=== PATIENT | female | born 1955 | race Native Hawaiian/Other Pacific Islander ===

== ENCOUNTER 2022-12-31 12:48 | Outpatient (CLI) | payer MEDICAID ==
[2022-12-31 17:35] LABS: BASOPHILS # (AUTO) 0.1 10^3/uL (0.0-0.1); BASOPHILS % (AUTO) 0.6 %; EOSINOPHILS % (AUTO) 0.1 %; HCT - HEMATOCRIT 28.4 % (37.0-47.0); LYMPHOCYTES # (AUTO) 0.9 10^3/uL (1.5-3.5); MEAN CORPUSCULAR HEMOGLOBIN 30.6 pg (27.0-31.0); MEAN CORPUSCULAR HGB CONC 31.7 g/dL (32.0-36.0); MEAN CORPUSCULAR VOLUME 96.6 fL (81.0-99.0); MEAN PLATELET VOLUME 8.3 fL (7.9-10.8); MONOCYTES # (AUTO) 0.7 10^3/uL (0.0-1.0); MONOCYTES % (AUTO) 8.5 %; NEUTROPHILS # (AUTO) 6.5 10^3/uL (1.5-6.6); NEUTROPHILS % (AUTO) 79.3 %; PLT - PLATELET COUNT 469 10^3/uL (130-450); RED BLOOD COUNT 2.94 10^6/uL (4.20-5.40); RED CELL DISTRIBUTION WIDTH 12.9 % (12.0-15.0); WHITE BLOOD COUNT 8.2 x10^3/uL (4.8-10.8)
[2022-12-31 17:49] LABS: ALBUMIN 3.1 g/dL (3.2-5.5); ALBUMIN/GLOBULIN RATIO 0.5 (1.0-2.2); BILIRUBIN,TOTAL 0.5 mg/dL (0.2-1.0); CALCIUM 9.4 mg/dL (8.5-10.3); CREATININE 0.8 mg/dL (0.6-1.3); TOTAL PROTEIN 8.9 g/dL (6.4-8.9)
== END 2022-12-31 12:49 | disposition home or self-care (01) ==
LOC: LAB.N 12:48
PROVIDERS: ATTEND Internal Medicine Hematology & Oncology
DX: C50.911 Malignant neoplasm of unspecified site of right female breast (principal); Z17.0 Estrogen receptor positive status [ER+]
CPT/HCPCS: 36415; 80053; 82378; 85025; 86300

== ENCOUNTER 2023-04-02 14:16 | Outpatient (CLI) | payer MEDICAID ==
[2023-04-02 17:48] LABS: BASOPHILS # (AUTO) 0.1 10^3/uL (0.0-0.1); EOSINOPHILS # (AUTO) 0.3 10^3/uL (0.0-0.7); EOSINOPHILS % (AUTO) 4.3 %; HCT - HEMATOCRIT 33.3 % (37.0-47.0); HGB - HEMOGLOBIN 10.5 g/dL (12.0-16.0); LYMPHOCYTES # (AUTO) 1.5 10^3/uL (1.5-3.5); LYMPHOCYTES % (AUTO) 26.4 %; MEAN CORPUSCULAR HEMOGLOBIN 29.5 pg (27.0-31.0); MEAN CORPUSCULAR HGB CONC 31.5 g/dL (32.0-36.0); MEAN CORPUSCULAR VOLUME 93.5 fL (81.0-99.0); MEAN PLATELET VOLUME 8.7 fL (7.9-10.8); MONOCYTES # (AUTO) 0.5 10^3/uL (0.0-1.0); MONOCYTES % (AUTO) 8.9 %; NEUTROPHILS # (AUTO) 3.4 10^3/uL (1.5-6.6); NEUTROPHILS % (AUTO) 59.2 %; PLT - PLATELET COUNT 221 10^3/uL (130-450); RED BLOOD COUNT 3.56 10^6/uL (4.20-5.40); WHITE BLOOD COUNT 5.8 x10^3/uL (4.8-10.8)
[2023-04-02 18:02] LABS: ALBUMIN 3.5 g/dL (3.2-5.5); ALBUMIN/GLOBULIN RATIO 0.8 (1.0-2.2); BILIRUBIN,TOTAL 0.2 mg/dL (0.2-1.0); CALCIUM 9.1 mg/dL (8.5-10.3); CREATININE 0.7 mg/dL (0.6-1.3); POTASSIUM 3.8 mmol/L (3.5-4.5); TOTAL PROTEIN 8.1 g/dL (6.4-8.9)
[2023-04-02 18:12] LABS: CA 125 5.8 U/mL (0.5-35.0)
== END 2023-04-02 14:17 | disposition home or self-care (01) ==
LOC: LAB.N 14:16
PROVIDERS: ATTEND Internal Medicine Hematology & Oncology
DX: C50.911 Malignant neoplasm of unspecified site of right female breast (principal); C78.00 Secondary malignant neoplasm of unspecified lung
CPT/HCPCS: 36415; 80053; 85025; 86300; 86304

== ENCOUNTER 2023-05-26 10:00 | Outpatient (CLI) | payer MEDICAID ==
[2023-05-26 12:12] LABS: ALBUMIN 3.6 g/dL (3.2-5.5); ALBUMIN/GLOBULIN RATIO 0.8 (1.0-2.2); BILIRUBIN,TOTAL 0.2 mg/dL (0.2-1.0); CALCIUM 9.2 mg/dL (8.5-10.3); CREATININE 0.7 mg/dL (0.6-1.3); TOTAL PROTEIN 8.3 g/dL (6.4-8.9)
[2023-05-26 12:14] LABS: BASOPHILS # (AUTO) 0.1 10^3/uL (0.0-0.1); BASOPHILS % (AUTO) 0.9 %; EOSINOPHILS # (AUTO) 0.1 10^3/uL (0.0-0.7); HGB - HEMOGLOBIN 11.1 g/dL (12.0-16.0); LYMPHOCYTES # (AUTO) 1.5 10^3/uL (1.5-3.5); LYMPHOCYTES % (AUTO) 27.9 %; MEAN CORPUSCULAR HEMOGLOBIN 29.1 pg (27.0-31.0); MEAN CORPUSCULAR HGB CONC 30.8 g/dL (32.0-36.0); MEAN CORPUSCULAR VOLUME 94.2 fL (81.0-99.0); MONOCYTES # (AUTO) 0.4 10^3/uL (0.0-1.0); MONOCYTES % (AUTO) 7.2 %; NEUTROPHILS # (AUTO) 3.3 10^3/uL (1.5-6.6); NEUTROPHILS % (AUTO) 61.8 %; PLT - PLATELET COUNT 212 10^3/uL (130-450); RED BLOOD COUNT 3.82 10^6/uL (4.20-5.40); RED CELL DISTRIBUTION WIDTH 12.7 % (12.0-15.0); WHITE BLOOD COUNT 5.4 x10^3/uL (4.8-10.8)
== END 2023-05-26 10:01 | disposition home or self-care (01) ==
LOC: LAB.N 10:00
PROVIDERS: ATTEND Internal Medicine Hematology & Oncology
DX: C50.911 Malignant neoplasm of unspecified site of right female breast (principal); C78.00 Secondary malignant neoplasm of unspecified lung
CPT/HCPCS: 36415; 80053; 85025; 86300

== ENCOUNTER 2023-06-01 15:49 | Outpatient (CLI) | payer MEDICAID | END 2023-06-01 15:50 | disposition critical access hospital (66) | LOC: EMS 15:49 | DX: R53.1 Weakness (principal); R11.2 Nausea with vomiting, unspecified; R19.7 Diarrhea, unspecified | CPT/HCPCS: A0425; A0429; A0999 ==

== ENCOUNTER 2023-06-01 16:13 | Emergency (ER) | payer MEDICAID ==
[2023-06-01] MEDS: SODIUM CHLORIDE 0.9% 1,000 ML IV STA (16:45)
--- NOTE | 2023-06-01 16:58 | ED Physician Documentation ---
History of Present Illness - Stated complaint Stated Complaint: WEAK N/V/D - Chief complaint Chief Complaint: Abd Pain - History obtained from History obtained from: Patient, Family - Additonal information Additional information: Patient is a 67-year-old female with a history of breast cancer presenting for evaluation of nausea, vomiting and diarrhea starting around 3:00 this afternoon. Patient reports having chicken and rice last night and the feeling a bit weak earlier today. She did run errands including going to the [employer] store but upon returning back home she tried to feeling nauseous and had vomiting. 1 episode of loose stools. She is not receiving chemo or radiation for her breast cancer. No recent antibiotics. No sick contacts. No recent travel. Denies fever, chest pain, shortness of air. Denies abdominal pain. 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 Review of Systems Constitutional: denies: Fever Cardiac: denies: Chest pain / pressure Respiratory: denies: Dyspnea GI: reports: Nausea, Vomiting, Diarrhea. 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 - Present Medications Home Medications: Ambulatory Orders Medication Instructions Recorded Confirmed Ondansetron Odt [Zofran] 4 mg TL Q6H PRN #10 tablet 06/01/23 - Allergies Allergies/Adverse Reactions: Allergies Allergy/AdvReac Type Severity Reaction Status Date / Time No Known Drug Allergies Allergy Verified 06/01/23 16:27 - Social History Does the pt smoke?: No Smoking Status: Never smoker Does the pt drink ETOH?: No Does the pt have substance abuse?: No - POLST Patient has POLST: No PD ED PE NORMAL - General General: Alert and oriented X 3, No acute distress, Well developed/nourished - HEENT HEENT: Atraumatic, Moist mucous membranes, Pharynx benign - Neck Neck: Supple, no meningeal sign - Cardiac Cardiac: RRR, Strong equal pulses - Respiratory Respiratory: No respiratory distress, Clear bilaterally - Abdomen Abdomen: Normal bowel sounds, Soft, Non tender, Non distended - Derm Derm: Warm and dry - Neuro Neuro: Normal speech Results - Vitals Vitals: Vital Signs - 24 hr 06/01/23 19:51 Heart Rate 90 Respiratory 17 Rate Blood Pressure 149/75 H O2 Saturation 98 Oxygen O2 Source Room air - EKG (time done) 1710 EKG releavant findings:: EKG personally interpreted by author of this note. Relevant findings are: Rate 95, normal sinus rhythm, motion artifact at the baseline - Labs Labs: Laboratory Tests 06/01/23 06/01/23 06/01/23 16:57 16:57 17:30 WBC 11.9 H RBC 4.26 Hgb 12.6 Hct 39.1 MCV 91.8 MCH 29.6 MCHC 32.2 RDW 12.8 Plt Count 197 MPV 8.1 Neut # (Auto) 10.8 H Lymph # (Auto) 0.4 L [place] # (Auto) 0.6 Eos # (Auto) 0.0 Baso # (Auto) 0.0 Absolute Nucleated RBC 0.00 Nucleated RBC % 0.0 Sodium 140 Potassium 3.7 Chloride 103 Carbon Dioxide 27 Anion Gap 10.0 BUN 29 H Creatinine 1.3 Estimated GFR (MDRD) 41 L Glucose 131 H Calcium 9.9 Total Bilirubin 0.5 AST 16 ALT 11 Alkaline Phosphatase 102 Troponin I High Sens 4.8 Total Protein 9.1 H Albumin 4.0 Globulin 5.1 H Albumin/Globulin Ratio 0.8 L Lipase 113 H Stl C. diff Tox B Gene NEGATIVE PD Medical Decision Making - ED course Complexity details: reviewed results, re-evaluated patient, d/w patient, d/w family ED course: Patient is a 67-year-old female presenting for evaluation of nausea, vomiting and diarrhea starting this afternoon. Her abdominal exam is benign and vital signs are stable. CBC and chemistries were obtained and reviewed without significant findings. No signs of acute coronary syndrome. Patient denies chest pain or abdominal pain. She is feeling better after IV fluids and Zofran. A stool specimens were sent including C. difficile testing. She is tolerating p.o. here. Abdominal exam remained benign. At this time I do not feel she needs emergent abdominal imaging and discussed continued supportive care with hilda jensen and family. Patient counseled on concerning symptoms to return for. Departure - Departure Disposition: 01 Home, Self Care Clinical Impression: Nausea vomiting and diarrhea Condition: Stable Instructions: ED Diet Vomiting Diarrhea Prescriptions: Ondansetron Odt [Zofran] 4 mg TL Q6H PRN #10 tablet PRN Reason: Nausea / Vomiting Comments: You were evaluated for nausea, vomiting and diarrhea. Your labs are reassuring other than some slight dehydration. We have given you IV fluids and medicine to help with your nausea. I have also sent to the same medication to [facility] in [place]. We have also sent your stool off for testing and we will notify you of any abnormal results. It is important to stay hydrated. Return to the ER with any worsening. Forms: PCP List Discharge Date/Time: 06/01/23 19:51
[2023-06-01 17:02] LABS: BASOPHILS % (AUTO) 0.2 %; EOSINOPHILS % (AUTO) 0.2 %; HCT - HEMATOCRIT 39.1 % (37.0-47.0); HGB - HEMOGLOBIN 12.6 g/dL (12.0-16.0); LYMPHOCYTES # (AUTO) 0.4 10^3/uL (1.5-3.5); LYMPHOCYTES % (AUTO) 3.6 %; MEAN CORPUSCULAR HEMOGLOBIN 29.6 pg (27.0-31.0); MEAN CORPUSCULAR HGB CONC 32.2 g/dL (32.0-36.0); MEAN CORPUSCULAR VOLUME 91.8 fL (81.0-99.0); MEAN PLATELET VOLUME 8.1 fL (7.9-10.8); MONOCYTES # (AUTO) 0.6 10^3/uL (0.0-1.0); MONOCYTES % (AUTO) 4.6 %; NEUTROPHILS # (AUTO) 10.8 10^3/uL (1.5-6.6); NEUTROPHILS % (AUTO) 91.1 %; PLT - PLATELET COUNT 197 10^3/uL (130-450); RED BLOOD COUNT 4.26 10^6/uL (4.20-5.40); RED CELL DISTRIBUTION WIDTH 12.8 % (12.0-15.0); WHITE BLOOD COUNT 11.9 x10^3/uL (4.8-10.8)
[2023-06-01] MEDS: ONDANSETRON 4 MG/2 ML VIAL IVP STA (17:05)
[2023-06-01 17:19] LABS: ALBUMIN/GLOBULIN RATIO 0.8 (1.0-2.2); BILIRUBIN,TOTAL 0.5 mg/dL (0.2-1.0); CALCIUM 9.9 mg/dL (8.5-10.3); CREATININE 1.3 mg/dL (0.6-1.3); POTASSIUM 3.7 mmol/L (3.5-4.5); TOTAL PROTEIN 9.1 g/dL (6.4-8.9)
[2023-06-01 18:31] LABS: TROPONIN I HIGH SENSITIVITY 4.8 ng/L (2.3-14.8)
[2023-06-01 19:58] VITALS: BP 149/75; O2SAT 98
== END 2023-06-01 19:51 | disposition home or self-care (01) ==
LOC: EDUNIT# → ED 16:13
DX: R11.2 Nausea with vomiting, unspecified (principal); R19.7 Diarrhea, unspecified; E11.9 Type 2 diabetes mellitus without complications
CPT/HCPCS: 36415; 80053; 83690; 84484; 85025; 87045; 87046; 87427; 87493; 93005; 96361; 96374; 99283

== ENCOUNTER 2024-06-17 22:48 | Inpatient (IN) ==
[2024-06-17 23:07] LABS: BASOPHILS # (AUTO) 0.1 10^3/uL (0.0-0.1); BASOPHILS % (AUTO) 0.2 %; EOSINOPHILS % (AUTO) 0.2 %; HCT - HEMATOCRIT 25.9 % (37.0-47.0); HGB - HEMOGLOBIN 8.6 g/dL (12.0-16.0); LYMPHOCYTES # (AUTO) 1.2 10^3/uL (1.5-3.5); LYMPHOCYTES % (AUTO) 5.6 %; MEAN CORPUSCULAR HEMOGLOBIN 30.9 pg (27.0-31.0); MEAN CORPUSCULAR HGB CONC 33.2 g/dL (32.0-36.0); MEAN CORPUSCULAR VOLUME 93.2 fL (81.0-99.0); MEAN PLATELET VOLUME 7.8 fL (7.9-10.8); MONOCYTES # (AUTO) 1.4 10^3/uL (0.0-1.0); MONOCYTES % (AUTO) 6.7 %; NEUTROPHILS # (AUTO) 17.6 10^3/uL (1.5-6.6); NEUTROPHILS % (AUTO) 86.7 %; PLT - PLATELET COUNT 313 10^3/uL (130-450); RED BLOOD COUNT 2.78 10^6/uL (4.20-5.40); RED CELL DISTRIBUTION WIDTH 12.5 % (12.0-15.0); WHITE BLOOD COUNT 20.4 x10^3/uL (4.8-10.8)
--- NOTE | 2024-06-17 23:20 | ED Physician Documentation ---
History of Present Illness Stated complaint Stated Complaint: WEAKNESS, COUGH, FEVER Chief complaint Chief Complaint: General Additonal information Additional information: 68yF With past medical history of breast cancer "in remission" presents with weakness, cough, for the past month per herself and her family, worsening over the past couple of days. she dendorsed subjective fever, malaise, soa. denies cp. patient does have hardened appearance of the R breast and states she has not had surgery on it despite breast cancer diangosis. denies hemoptysis, leg swelling, pleurisy. [facility] speech therapist [phone]. Meds/Allgy Home Medications Ambulatory Orders Medication Instructions Recorded Confirmed ondansetron 4 mg disintegrating 4 mg translingual Q6H PRN Nausea / 06/01/23 tablet Vomiting #10 tabs Allergies Allergies Allergy/AdvReac Type Severity Reaction Status Date / Time No Known Drug Allergies Allergy Verified 06/17/24 23:01 PFSH Social History Social History Smoking Status: Never smoker Do you feel safe in your home environment?: Yes Suffered physical, verbal, emotional, or financial abuse?: No POLST Patient has POLST: No Exam Constitutional normal general appearance, no apparent distress and average body habitus HENMT normocephalic and head/scalp atraumatic Eyes PERRL and EOMs intact bilaterally Neck/C-Spine visual inspection normal Chest R breast with peau d'orange appearance concerning for untreated breast cancer Respiratory mild increased wob. increased respiratory rate. diminished breath sound in R lung [place]. Cardiovascular tachycardic rate, regular rhythm Results Vitals Vitals: Vital Signs - 24 hr 06/17/24 22:56 06/17/24 23:52 Temperature 39.9 C H Temperature Source Oral Pulse Rate 100 Respiratory Rate 20 Blood Pressure 160/64 H O2 Saturation 94 Oxygen Delivery Method Nasal Cannula O2 Source Room air Oxygen Flow Rate 2 Pain Intensity 0 Oxygen O2 Source Room air Oxygen Flow Rate 2 EKG (time done) 2309: EKG releavant findings:: EKG personally interpreted by author of this note. Relevant findings are: Rate: Rate (enter#) (96) Rhythm: NSR [place]: Normal Labs Labs: Laboratory Tests 06/17/24 06/17/24 06/17/24 23:02 23:02 23:02 WBC 20.4 H RBC 2.78 L Hgb 8.6 L Hct 25.9 L MCV 93.2 MCH 30.9 MCHC 33.2 RDW 12.5 Plt Count 313 MPV 7.8 L Neut # (Auto) 17.6 H Lymph # (Auto) 1.2 L [place] # (Auto) 1.4 H Eos # (Auto) 0.0 Baso # (Auto) 0.1 Absolute Nucleated RBC 0.00 Band Neuts % (Manual) Not Reportable Abnorm Lymph % (Manual) Not Reportable Nucleated RBC % 0.0 Neutrophils # (Manual) Not Reportable Lymphocytes # (Manual) Not Reportable Monocytes # (Manual) Not Reportable Eosinophils # (Manual) Not Reportable Basophils # (Manual) Not Reportable Differential Comment MANUAL=AUTO DIFF Platelet Estimate NORMAL (130-450,000) Platelet Morphology NORMAL APPEARANCE RBC Morph Micro Appear 1+ ANISOCYTOSIS 1+ HYPOCHROMASIA 1+ MICROCYTOSIS VBG pH VBG pCO2 VBG pO2 VBG HCO3 VBG Total CO2 VBG O2 Saturation VBG Base Excess Sodium 126 L Potassium 4.2 Chloride 91 L Carbon Dioxide 24 Anion Gap 11.0 BUN 18 Creatinine 1.0 Estimated GFR (MDRD) 55 L Glucose 240 H Lactic Acid 1.3 Calcium 8.9 Total Bilirubin 0.9 AST 23 ALT 19 Alkaline Phosphatase 99 Total Protein 8.1 Albumin 2.9 L Globulin 5.2 H Albumin/Globulin Ratio 0.6 L 06/17/24 23:45 WBC RBC Hgb Hct MCV MCH MCHC RDW Plt Count MPV Neut # (Auto) Lymph # (Auto) [place] # (Auto) Eos # (Auto) Baso # (Auto) Absolute Nucleated RBC Band Neuts % (Manual) Abnorm Lymph % (Manual) Nucleated RBC % Neutrophils # (Manual) Lymphocytes # (Manual) Monocytes # (Manual) Eosinophils # (Manual) Basophils # (Manual) Differential Comment Platelet Estimate Platelet Morphology RBC Morph Micro Appear VBG pH 7.549 H VBG pCO2 29.7 L VBG pO2 83.7 H VBG HCO3 26.2 VBG Total CO2 27.1 VBG O2 Saturation 96.0 H VBG Base Excess 3.6 H Sodium Potassium Chloride Carbon Dioxide Anion Gap BUN Creatinine Estimated GFR (MDRD) Glucose Lactic Acid Calcium Total Bilirubin AST ALT Alkaline Phosphatase Total Protein Albumin Globulin Albumin/Globulin Ratio PD Medical Decision Making ED course ED course: 68yF p/w right-sided pneumonia as well as hypoxia and tachypnea on exam. o2 sat 92-93% on RA improving to high 90s on 2L . Patient has white blood cell count of 20, is profoundly anemic with hemoglobin 8.6 (previous 12.6 on 06/01/2023), is hyponatremic with sodium 126 and glucose 240. 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 Plan To admit for supplemental oxygen and IV antibiotics. Note that she appears also to have untreated right breast cancer due to peau d'orange appearance of her right breast and no evidence of lumpectomy or mastectomy in the setting of breast cancer history. Discharge Plan Discharge Patient Disposition: 65 [facility] DC/Xfer Condition: Fair Clinical Impression: Peau d'orange over breast, Breast cancer, Pneumonia, Hyperglycemia, Hypoxia Prescriptions: No Action ondansetron 4 MG tablet,disintegrating 4 mg translingual Q6H PRN (Reason: Nausea / Vomiting) Qty: 10 0RF Print Language: Unknown Stand Alone Forms: PCP List
[2024-06-17 23:22] LABS: ALBUMIN 2.9 g/dL (3.2-5.5); ALBUMIN/GLOBULIN RATIO 0.6 (1.0-2.2); BILIRUBIN,TOTAL 0.9 mg/dL (0.2-1.0); CALCIUM 8.9 mg/dL (8.5-10.3); POTASSIUM 4.2 mmol/L (3.5-4.5); TOTAL PROTEIN 8.1 g/dL (6.4-8.9)
[2024-06-17 23:37] LABS: PLATELET ESTIMATE, MANUAL NORMAL (130-450,000) (NORMAL); PLATELET MORPHOLOGY NORMAL APPEARANCE (NORMAL)
[2024-06-17 23:38] LABS: DIFFERENTIAL COMMENT MANUAL=AUTO DIFF
--- NOTE | 2024-06-17 23:49 | XRAY Report ---
PROCEDURE: XR Chest 1V INDICATIONS: fever TECHNIQUE: One view of the chest was acquired. COMPARISON: None. FINDINGS: Surgical changes and devices: Prior left mastectomy. Lungs and pleura: There is a small right-sided pleural effusion. There is moderate consolidation see n involving the anterior right lung. No pneumothorax is seen. Mediastinum: The aorta is prominent and tortuous. The cardiac contours are within normal limits. Bones and chest wall: No suspicious bony lesions. Age-appropriate degenerative changes are seen. O verlying soft tissues appear unremarkable. IMPRESSION: Right-sided pleural effusion, with consolidation seen involving the anterior right lung. Reviewed by: Jd Christensen MD on 06/17/2024 10:48 PM [facility] [[email or web address]] Approved by: Jd Christensen MD on 06/17/2024 10:48 PM [facility] [[email or web address]] Station ID: [id number]
[2024-06-17 23:51] LABS: VBG PCO2 29.7 mmHg (41-51); VBG PH 7.549 (7.31-7.41)
[2024-06-17 23:52] LABS: VBG BASE EXCESS 3.6 mmol/L (-2 - +2); VBG PO2 83.7 mmHg (25-47); VBG TOTAL CO2 27.1 mmol/L (24-29)
[2024-06-18 00:09] LABS: B. PARAPERTUSSIS- RESP PCR PAN NOT DETECTED; B. PERTUSSIS- RESP PCR PANEL NOT DETECTED; C. PNEUMONIAE- RESP PCR PANEL NOT DETECTED; CORONAVIRUS 229E-RESP PCR NOT DETECTED; CORONAVIRUS HKU1-RESP PCR NOT DETECTED; CORONAVIRUS NL63-RESP PCR NOT DETECTED; CORONAVIRUS OC43-RESP PCR NOT DETECTED; HUMAN METAPNEUMOVIRUS NOT DETECTED; INFLUENZA A- RESP PCR PANEL NOT DETECTED; INFLUENZA B - RESP PCR PANEL NOT DETECTED; M. PNEUMONIAE- RESP PCR PANEL NOT DETECTED; PARAINFLUENZA VIRUS 1 NOT DETECTED; PARAINFLUENZA VIRUS 2 NOT DETECTED; PARAINFLUENZA VIRUS 4 NOT DETECTED; RHINOVIRUS/ENTEROVIRUS NOT DETECTED; RSV- RESP PCR PANEL NOT DETECTED; SARS-CoV-2 -RESP PCR PANEL NOT DETECTED
[2024-06-18] MEDS ORDERED: cefTRIAXone 2 GM VIAL ONE (00:10)
[2024-06-18] MEDS: cefTRIAXone 2 GM in SODIUM CHLORIDE 0.9% MINIBAG 100 ML IV STA (00:15)
[2024-06-18] MEDS: SODIUM CHLORIDE 0.9% 1,500 ML IV ONE (00:15)
[2024-06-18] MEDS ORDERED: ONDANSETRON ODT 4 MG TABLET TL PRN (00:47)
--- NOTE | 2024-06-18 01:08 | HISTORY & PHYSICAL EXAMINATION ---
Chief Complaint Chief Complaint Chief Complaint: Shortness of Breath History of Present Illness Admitted From Admitted From:: ER History Obtained From Records Reviewed: Yes History obtained from: Pt, pt's niece, staff, chart Exam Limitations: Virtual exam, language barrier History of Present Illness HPI Comment/Other: H&P was conducted via video remotely, using [employer]. Patient is in [place]. Physician is in [place]. Pt's niece Lyn is at bedside. Pt speaks [place]. Pt's niece is translating for pt. 68 yo F with h/o Breast CA, DM type 2 presented to the ER with c/o 1 month h/o weakness, Shortness of breath, cough. Pt was admitted to a different hospital 1 year ago for similar symptoms with diagnosis of PNA. Pt was seen 1 month ago at different hospital and given dx of Flu. Pt's symptoms continued to worsen, so she came to the ER today. Pt has a h/o Breast CA, but no h/o surgery for CA, no radiation. Pt does take medication (unknown name for CA). Pt was seeing a Dr. Hunter, an Oncologist in [facility], for her Breast CA, but has been unable to see him in >1 year d/t insurance issues. Pt says that her R breast has an improved appearance than pre-tx. She is willing to see a more local Oncologist. Pt takes PO medications for her DM 2 (unknown names). Her FBS are usually 180 or less. Pt began to have symptoms of SOB 1 month ago, then cough with no sputum, and weakness. No documented Fever. +cold/shivering x 1 day. +nausea/decreased appetite. No abdo pain. In the ER, T39.9C, HR 100, RR 20, WBC 20.4, Hgb 8.6, Na 126, Glc 240 CXR: Right-sided pleural effusion, with consolidation seen involving the anterior right lung. Pt was given IVF, Rocephin/Azithro in the ER. Review of Systems Status of ROS: 10 or more systems reviewed and unremarkable except as noted in history and below PFSH Social History Social History Smoking Status: Never smoker Do you feel safe in your home environment?: Yes Suffered physical, verbal, emotional, or financial abuse?: No POLST Patient has POLST: No Meds/Allgy Home Medications Ambulatory Orders Medication Instructions Recorded Confirmed ondansetron 4 mg disintegrating 4 mg translingual Q6H PRN Nausea / 06/01/23 tablet Vomiting #10 tabs Allergies Allergies Allergy/AdvReac Type Severity Reaction Status Date / Time No Known Drug Allergies Allergy Verified 06/17/24 23:01 Exam Constitutional normal general appearance and no apparent distress HENMT normocephalic Eyes EOMs intact bilaterally and no scleral icterus Chest per ER Provider: R breast with peau d'orange appearance concerning for untreated breast cancer Respiratory Access cart stethoscope not working; per ER Provider:mild increased wob. increased respiratory rate. diminished breath sound in R lung [place]. Cardiovascular Access cart stethoscope not working; per ER Provider: RR, tachy Gastrointestinal per ER Provider: non-distended, NT, Soft Extremities per ER Provider: moves all extrem, no edema Neurology A+Ox3, normal speech, cooperative; per ER Provider: NFD Conclusion/Plan Problem List (1) Pneumonia: Plan R Pneumonia, most likely post-obstructive R Pleural Effusion Fever Cough Shortness of breath Leukocytosis Tachycardia -T39.9C, HR 100, RR 20, WBC 20.4, Resp viral panel neg, BC pending -CXR: Right-sided pleural effusion, with consolidation seen involving the anterior right lung. -Pt was given IVF, Rocephin/Azithro in the ER. -admit to Med Surg -O2 support PRN -change to Unasyn IV -consider thoracentesis -may need transfer to hospital with IR and Oncologist if does not improve Breast CA Anemia -Hgb 8.6 -pt on unknown medication for Breast CA; need med rec -pt has had difficulty with F/u with Oncologist d/t insurance - consult to help coordinate F/U with local Oncologist DM type 2 -Glc 240 -accuchecks, SS Insulin, Hypoglycemic protocol -hold home PO medications -check Hgba1c Hyponatremia -Na 126 -most likely d/t decreased PO intake -continue IVF -check Na q4 hrs, goal for increase in Na <1 meQ/hr VTE Prophylaxis: Lovenox Code Status: D/W pt; she is Full Code ~Priscila Weaver MD Hospitalist Lab Results Lab results reviewed: Yes 06/17/24 23:02 06/17/24 23:02
[2024-06-18] MEDS ORDERED: ONDANSETRON 4 MG/2 ML VIAL IVP PRN (01:32)
[2024-06-18] MEDS: AZITHROMYCIN INJ 500 MG in SODIUM CHLORIDE 0.9% 250 ML IV STA (01:56)
[2024-06-18] MEDS: SODIUM CHLORIDE FLUSH 0.9% 10 ML SYRINGE IVP SCH (01:56)
[2024-06-18] MEDS: SODIUM CHLORIDE 0.9% 1,000 ML IV SCH (02:02)
[2024-06-18] MEDS: AMPICILLIN/SULBACTAM 3 GM in SODIUM CHLORIDE 0.9% MINIBAG 100 ML IV SCH (02:31)
[2024-06-18] MEDS: levoFLOXacin 500 MG/100 ML 500 MG/100 ML BAG IV SCH (03:06)
[2024-06-18 03:07] LABS: BILIRUBIN,URINE NEGATIVE (NEGATIVE); GLUCOSE, URINE (UA) 100 mg/dL (NEGATIVE); KETONES,URINE (UA) NEGATIVE (NEGATIVE); LEUKOCYTE ESTERASE, URINE NEGATIVE (NEGATIVE); NITRITE,URINE NEGATIVE (NEGATIVE); OCCULT BLOOD,URINE MODERATE (NEGATIVE); PROTEIN,URINE 30 mg/dL (NEGATIVE); UROBILINOGEN,URINE 1 (NORMAL) E.U./dL (NORMAL)
[2024-06-18] MEDS: diphenhydrAMINE INJ 50 MG/ML VIAL IVP SCH (03:07)
[2024-06-18 03:17] LABS: CLARITY,URINE CLEAR (CLEAR)
[2024-06-18 03:19] LABS: BACTERIA,URINE Few /HPF (None Seen); RBC,URINE 0-5 /HPF (0-5); SQUAMOUS EPITHELIAL CELL,UR FEW Squamous (<= Few); WBC,URINE 0-3 /HPF (0-5)
[2024-06-18 07:13] LABS: BASOPHILS % (AUTO) 0.3 %; EOSINOPHILS % (AUTO) 0.1 %; HCT - HEMATOCRIT 23.4 % (37.0-47.0); HGB - HEMOGLOBIN 7.7 g/dL (12.0-16.0); LYMPHOCYTES # (AUTO) 1.1 10^3/uL (1.5-3.5); LYMPHOCYTES % (AUTO) 6.7 %; MEAN CORPUSCULAR HEMOGLOBIN 31.3 pg (27.0-31.0); MEAN CORPUSCULAR HGB CONC 32.9 g/dL (32.0-36.0); MEAN CORPUSCULAR VOLUME 95.1 fL (81.0-99.0); MONOCYTES # (AUTO) 1.2 10^3/uL (0.0-1.0); MONOCYTES % (AUTO) 7.5 %; NEUTROPHILS # (AUTO) 13.5 10^3/uL (1.5-6.6); NEUTROPHILS % (AUTO) 84.8 %; PLT - PLATELET COUNT 289 10^3/uL (130-450); RED BLOOD COUNT 2.46 10^6/uL (4.20-5.40); RED CELL DISTRIBUTION WIDTH 12.7 % (12.0-15.0); WHITE BLOOD COUNT 15.9 x10^3/uL (4.8-10.8)
[2024-06-18 07:32] LABS: CREATININE 0.8 mg/dL (0.6-1.3); POTASSIUM 3.9 mmol/L (3.5-4.5)
[2024-06-18 08:36] LABS: ESTIMATED AVERAGE GLUCOSE 223 mg/dL (70-100); HEMOGLOBIN A1c% 9.4 % (4.27-6.07)
[2024-06-18] MEDS: INSULIN LISPRO 300 UNIT/3 ML PEN SUBQ SCH (08:43)
[2024-06-18] MEDS: ENOXAPARIN 40 MG/0.4 ML SYRINGE SUBQ SCH (08:43)
--- NOTE | 2024-06-18 14:24 | PHARMACY PROGRESS NOTE ---
Best Possible Medication History Admit Date and Time: 06/18/24 [id number] Home Medications Medication Instructions Recorded Confirmed Type anastrozole 1 mg tablet 1 mg PO DAILY 06/18/24 06/18/24 History glipizide 2.5 mg tablet, extended 2.5 mg PO BID 06/18/24 06/18/24 History release 24 hr Processed by: Pharmacy (Medication reconciliation completed by clinical pharmacy coordinatorMalcolm) Medications reviewed in ED?: No Medication History completed: Yes Patient Interview: Pt unable to participate Secondary Source(s): Pharmacy records and Insurance records [facility] Statement: As the person ultimately responsible for medication therapy, providers are able to order a medication from an existing home medication list in [facility] via the "Reconcile Routine" prior to Confirmation of that medication by support analyst. Such practice is discouraged except when the physician, in their clinical judgment, deems that a medical need exists for a medication without regard to previous use.
[2024-06-19 06:10] LABS: BASOPHILS % (AUTO) 0.3 %; EOSINOPHILS % (AUTO) 0.2 %; HCT - HEMATOCRIT 24.6 % (37.0-47.0); HGB - HEMOGLOBIN 7.9 g/dL (12.0-16.0); LYMPHOCYTES # (AUTO) 1.1 10^3/uL (1.5-3.5); LYMPHOCYTES % (AUTO) 7.5 %; MEAN CORPUSCULAR HEMOGLOBIN 30.9 pg (27.0-31.0); MEAN CORPUSCULAR HGB CONC 32.1 g/dL (32.0-36.0); MEAN CORPUSCULAR VOLUME 96.1 fL (81.0-99.0); MONOCYTES # (AUTO) 1.5 10^3/uL (0.0-1.0); MONOCYTES % (AUTO) 10.2 %; NEUTROPHILS # (AUTO) 12.1 10^3/uL (1.5-6.6); NEUTROPHILS % (AUTO) 81.1 %; PLT - PLATELET COUNT 301 10^3/uL (130-450); RED BLOOD COUNT 2.56 10^6/uL (4.20-5.40); RED CELL DISTRIBUTION WIDTH 12.7 % (12.0-15.0); WHITE BLOOD COUNT 14.9 x10^3/uL (4.8-10.8)
[2024-06-19 06:43] LABS: DIFFERENTIAL COMMENT MANUAL=AUTO DIFF; PLATELET ESTIMATE, MANUAL NORMAL (130-450,000) (NORMAL); PLATELET MORPHOLOGY NORMAL APPEARANCE (NORMAL); RBC MORPHOLOGY (MULTIPLE) NORMAL APPEARANCE (NORMAL); WBC MORPHOLOGY (MULTIPLE) NORMAL APPEARANCE (NORMAL)
[2024-06-19] MEDS: AZITHROMYCIN 250 MG TABLET PO SCH (08:33)
[2024-06-19] MEDS: polyethylene glycoL 3350 17 GM PACKET PO SCH (08:33)
[2024-06-19] MEDS: cefTRIAXone 1 GM VIAL IVP SCH (08:33)
[2024-06-19 09:40] LABS: INR 1.5 (0.8-1.2); PT - PROTHROMBIN TIME 16.6 secs (9.9-12.6)
--- NOTE | 2024-06-19 12:44 | PROVIDER PROGRESS NOTE ---
Subjective Subjective Subjective: Patient is a 68-year-old female with a history of breast cancer on anastrozole, poor compliance who presents with 1 month of progressive shortness of breath, cough, as well as weakness. She has a history of breast cancer, and sees an oncologist in [place] but has been unable to see him for over a year due to insurance issues. Chest x-ray on admission showed a right sided pleural effusion, with consolidation seen involving the anterior right lung. She was hyponatremic, and had a significant leukocytosis on admission. Currently, she is being treated for community-acquired pneumonia. She is receiving IV fluids for her hyponatremia. For her pleural effusion, we did consult radiology; they are planning a CT scan of the lung, followed by an ultrasound-guided thoracentesis. Social work is working on connecting her with cancer care management here so she can establish care with Dr. Strauss. Patient speaks [place] Irish primarily, but is able to communicate in Yakut. Jluisfrank is at bedside if needed. Current Medications Current Medications Current Medications: Current Medications Generic Name Dose Route Start Last Admin Trade Name Freq PRN Reason Stop Dose Admin Acetaminophen 650 mg 06/18/24 01:32 Acetaminophen 325 Mg Tablet PO Q4HR PRN Pain 1 to 4, or Fever Azithromycin 500 mg 06/19/24 09:00 06/19/24 08:33 Azithromycin 250 Mg Tablet PO 500 mg DAILY MAIKEL Administration Ceftriaxone Sodium 1 gm 06/19/24 09:00 06/19/24 08:33 Ceftriaxone 1 Gm Vial IVP 1 gm DAILY MAIKEL Administration Enoxaparin Sodium 40 mg 06/18/24 09:00 06/19/24 08:49 Enoxaparin 40 Mg/0.4 Ml Syringe SUBQ Not Given DAILY MAIKEL Insulin Human Lispro 1 - 5 unit 06/18/24 08:00 06/19/24 11:55 Insulin Lispro 300 Unit/3 Ml Pen SUBQ 2 unit 0800,1200,1700,2100 MAIKEL Administration Protocol Ondansetron HCl 4 mg 06/18/24 00:47 Ondansetron Odt 4 Mg Tablet TL Q6H PRN Nausea / Vomiting Ondansetron HCl 4 mg 06/18/24 01:32 Ondansetron 4 Mg/2 Ml Vial IVP Q6HR PRN Nausea / Vomiting Polyethylene Glycol 17 gm 06/19/24 09:00 06/19/24 08:33 Polyethylene Glycol 3350 17 Gm Packet PO 17 gm DAILY MAIKEL Administration Sodium Chloride 10 ml 06/18/24 01:32 Sodium Chloride Flush 0.9% 10 Ml Syringe IVP PRN PRN NEEDED PER PROVIDER ORDERS Sodium Chloride 10 ml 06/18/24 01:32 06/19/24 08:34 Sodium Chloride Flush 0.9% 10 Ml Syringe IVP 10 ml 0100,0900,1700 MAIKEL Administration Objective Vital Signs/Intake & Output Reviewed Vital Signs: Yes Vital Signs: Vital Signs x48h Temp Pulse Resp BP BP Pulse Ox 06/19/24 09:03 97.9 F 100 20 139/77 H 92 06/19/24 08:30 99.1 F 87 135/61 H 95 Intake & Output: Intake & Output 06/16/24 06/17/24 06/18/24 06/19/24 23:59 23:59 23:59 23:59 Intake Total 3500 / 3500 240 / 240 Output Total 2100 / 2100 Balance 1400 / 1400 240 / 240 Weight (kg) 54.3 kg 50.5 kg Objective General Appearance: positive No acute distress, Alert and Other (Cachectic in appearance, temporal wasting noted); negative Anxious Eyes Bilateral: positive Normal inspection, PERRL and EOMI ENT: positive ENT inspection nml, Pharynx nml and No signs of dehydration Neck: positive Nml inspection, Thyroid nml and No JVD Respiratory: positive Chest non-tender, No respiratory distress and Other (Diminshed lung sounds in the right lower lobe, some crackles auscultated in the right upper lobe; ROCIO and LLL with normal breath sounds); negative Breath sounds nml Cardiovascular: positive Regular rate & rhythm, No murmur and No gallop; negative Systolic murmur, Diastolic murmur or Friction rub Abdomen: positive Non-tender; negative Guarding, Rebound, Hepatomegaly, Splenomegaly or Mass Back: positive Nml inspection; negative CVA tenderness (R) or CVA tenderness (L) Skin: positive Color nml, No rash and Warm; negative Dry or Cyanosis Extremities: positive Non-tender, Full ROM and Nml appearance Neurologic/Psychiatric: positive Oriented x3 and Mood/affect nml Lab Results 06/19/24 05:52 06/19/24 12:28 Other Labs: Lab Results x24hrs 0206/19/24 06/19/24 Range/Units 11:39 09:28 07:49 WBC (4.8-10.8) x10^3/uL RBC (4.20-5.40) 10^6/uL Hgb (12.0-16.0) g/dL Hct (37.0-47.0) % MCV (81.0-99.0) fL MCH (27.0-31.0) pg MCHC (32.0-36.0) g/dL RDW (12.0-15.0) % Plt Count (130-450) 10^3/uL MPV (7.9-10.8) fL Neut # (Auto) (1.5-6.6) 10^3/uL Lymph # (Auto) (1.5-3.5) 10^3/uL Barbour # (Auto) (0.0-1.0) 10^3/uL Eos # (Auto) (0.0-0.7) 10^3/uL Baso # (Auto) (0.0-0.1) 10^3/uL Absolute Nucleated RBC x10^3/uL Band Neuts % (Manual) Abnorm Lymph % (Manual) Nucleated RBC % /100WBC Neutrophils # (Manual) Lymphocytes # (Manual) Monocytes # (Manual) Eosinophils # (Manual) Basophils # (Manual) Differential Comment WBC Morphology (NORMAL) Platelet Estimate (NORMAL) Platelet Morphology (NORMAL) RBC Morph Micro Appear (NORMAL) PT 16.6 H (9.9-12.6) secs INR 1.5 H (0.8-1.2) Sodium (135-145) mmol/L POC Whole Bld Glucose 198 138 (70-100) mg/dL 06/19/24 06/18/24 06/18/24 Range/Units 05:52 21:09 20:58 WBC 14.9 H (4.8-10.8) x10^3/uL RBC 2.56 L (4.20-5.40) 10^6/uL Hgb 7.9 L (12.0-16.0) g/dL Hct 24.6 L (37.0-47.0) % MCV 96.1 (81.0-99.0) fL MCH 30.9 (27.0-31.0) pg MCHC 32.1 (32.0-36.0) g/dL RDW 12.7 (12.0-15.0) % Plt Count 301 (130-450) 10^3/uL MPV 8.0 (7.9-10.8) fL Neut # (Auto) 12.1 H (1.5-6.6) 10^3/uL Lymph # (Auto) 1.1 L (1.5-3.5) 10^3/uL Barbour # (Auto) 1.5 H (0.0-1.0) 10^3/uL Eos # (Auto) 0.0 (0.0-0.7) 10^3/uL Baso # (Auto) 0.0 (0.0-0.1) 10^3/uL Absolute Nucleated RBC 0.00 x10^3/uL Band Neuts % (Manual) Not Reportable Abnorm Lymph % (Manual) Not Reportable Nucleated RBC % 0.0 /100WBC Neutrophils # (Manual) Not Reportable Lymphocytes # (Manual) Not Reportable Monocytes # (Manual) Not Reportable Eosinophils # (Manual) Not Reportable Basophils # (Manual) Not Reportable Differential Comment MANUAL=AUTO DIFF WBC Morphology NORMAL APPEARANCE (NORMAL) Platelet Estimate NORMAL (130-450,000) (NORMAL) Platelet Morphology NORMAL APPEARANCE (NORMAL) RBC Morph Micro Appear NORMAL APPEARANCE (NORMAL) PT (9.9-12.6) secs INR (0.8-1.2) Sodium 128 L (135-145) mmol/L POC Whole Bld Glucose 231 (70-100) mg/dL 06/18/24 06/18/24 06/18/24 Range/Units 16:56 16:50 13:09 WBC (4.8-10.8) x10^3/uL RBC (4.20-5.40) 10^6/uL Hgb (12.0-16.0) g/dL Hct (37.0-47.0) % MCV (81.0-99.0) fL MCH (27.0-31.0) pg MCHC (32.0-36.0) g/dL RDW (12.0-15.0) % Plt Count (130-450) 10^3/uL MPV (7.9-10.8) fL Neut # (Auto) (1.5-6.6) 10^3/uL Lymph # (Auto) (1.5-3.5) 10^3/uL Barbour # (Auto) (0.0-1.0) 10^3/uL Eos # (Auto) (0.0-0.7) 10^3/uL Baso # (Auto) (0.0-0.1) 10^3/uL Absolute Nucleated RBC x10^3/uL Band Neuts % (Manual) Abnorm Lymph % (Manual) Nucleated RBC % /100WBC Neutrophils # (Manual) Lymphocytes # (Manual) Monocytes # (Manual) Eosinophils # (Manual) Basophils # (Manual) Differential Comment WBC Morphology (NORMAL) Platelet Estimate (NORMAL) Platelet Morphology (NORMAL) RBC Morph Micro Appear (NORMAL) PT (9.9-12.6) secs INR (0.8-1.2) Sodium 130 L 130 L (135-145) mmol/L POC Whole Bld Glucose 145 (70-100) mg/dL Diagnostic Imaging Diagnostic Imaging Results: positive Final report reviewed Assessment/Plan Problem List (1) Pneumonia: Impression: Patient with right lower lobe infiltrate. Does have a history of right breast cancer, unknown status at this time. There is concern for postobstructive pneumonia. Continue Rocephin and azithromycin. Chest x-ray does show a large right pleural effusion. There is also diminished breath sounds there. CT chest ordered, pending. Radiology planning on doing ultrasound-guided thoracentesis following this. Pleural fluid studies ordered. Qualifiers: Laterality: right Lung location: lower lobe of lung Pneumonia type: d ue to unspecified organism Qualified Code(s): J18.9 - Pneumonia, unspecified organism (2) Sepsis: Impression: Patient febrile, with significant leukocytosis on admission. Source is likely pulmonary as outlined above. Received adequate IV fluid resuscitation. Blood cultures were ordered on admission, no growth to date. Continue Rocephin and azithromycin as outlined above. Qualifiers: Sepsis acute organ dysfunction status: without acute organ dysfunction Sepsis type: sepsis due to unspecified organism Qualified Code(s): A41.9 - Sepsis, unspecified organism (3) Hyponatremia: Impression: Likely hypovolemic hyponatremia in setting of decreased p.o. intake due to above. Improving with IV fluids. Continue gentle IV fluid rehydration. Concern for fluid overload in setting of pleural effusion. (4) Diabetes mellitus: Impression: Patient has been hyperglycemic while here. A1c of 9.4%. Only taking oral medication in the outpatient setting. May need to either increase this or start her on insulin regimen. Will start 7 units insulin Lantus here at night, continue low-dose sliding scale. Qualifiers: Diabetes mellitus complication status: without complication Diabetes mellitus fci insulin use: unspecified fci insulin use status D iabetes mellitus type: type 2 Qualified Code(s): E11.9 - Type 2 diabetes mellitus without complications (5) Breast cancer: Impression: Has not seen oncologist in over a year due to insurance issues. Continue anastrozole. Social work working on coordinating cancer care to be moved here with Dr. Strauss. Qualifiers: Breast location: unspecified site of breast Estrogen receptor status: u nspecified Laterality: right Patient sex: female Qualified Code(s): C50.911 - Malignant neoplasm of unspecified site of right female breast
[2024-06-19 12:58] LABS: CALCIUM 8.7 mg/dL (8.5-10.3); CREATININE 0.8 mg/dL (0.6-1.3)
[2024-06-19] MEDS ORDERED: iohexoL-300 100 ML VIAL ONE (13:45)
[2024-06-19] MEDS: SODIUM CHLORIDE 0.9% 1,000 ML IV SCH (14:20)
[2024-06-19] MEDS: SODIUM CHLORIDE FLUSH 0.9% 10 ML SYRINGE IVP PRN (14:21)
[2024-06-19] MEDS: iohexoL-300 100 ML VIAL IVP ONE (15:24)
--- NOTE | 2024-06-19 16:40 | CT Report ---
PROCEDURE: CT Chest W INDICATIONS: as per radiologist request prior to thora CONTRAST: OMNI 300 100ML TECHNIQUE: After the administration of intravenous contrast, a CT scan of the chest was performed. Images were recorded and evaluated at appropriate window settings. Reformats: axial MIP of the chest, coronal and sagittal. For radiation dose reduction, the following was used: automated exposure control, adjustme nt of mA and/or kV according to patient size. COMPARISON: 06/17/2024 Radiograph FINDINGS: Image quality: Diagnostic Lungs and pleura:Bibasal atelectasis and opacities are present. Rounded opacity is seen in the right lower lung measures 3.2 cm in thickness on image 2/52. Moderate sized right pleural effusion thickene d enhancing pleura. Mediastinum, heart, and esophagus: Coronary calcifications. Annular calcifications. Cardiomegaly. The re are borderline enlarged lymph nodes, for example in the upper mediastinum pretracheal node measure s 0.8 cm in short axis on image 2/22 Chest wall and thyroid: Possible right lower breast mass measuring 1.5 cm, as well as adjacent skin t hickening. Right axillary soft tissue measures 2.6 cm. Upper abdomen: Unremarkable Bones: There are degenerative changes. IMPRESSION: Moderate size right pleural effusion with pleural thickening, possibly empyema. Adjacent nodular opac ities in the lower lobes, which may represent atelectasis. Superimposed airspace disease is possible. Surveillance imaging is recommended regardless of treatment plan to ensure there is no underlying mal ignant lesion. In the right lower breast, there is skin thickening and possibly hypervascular lesion. Soft tissues a re seen in the right axilla. Consider ultrasound follow-up and possible biopsy. Reviewed by: Kuldeep Hanson MD on 06/19/2024 4:39 PM PST Approved by: Kuldeep Hanson MD on 06/19/2024 4:39 PM PST Station ID: [id number]
[2024-06-19] MEDS: MULTIVITAMIN W/MINERALS TABLET PO SCH (16:58)
[2024-06-19] MEDS: AMPICILLIN/SULBACTAM 3 GM in SODIUM CHLORIDE 0.9% MINIBAG 100 ML IV SCH (17:38)
[2024-06-19] MEDS: INSULIN GLARGINE-YFGN 300 UNIT/3 ML PEN SUBQ SCH (21:16)
[2024-06-20 05:58] LABS: BASOPHILS # (AUTO) 0.1 10^3/uL (0.0-0.1); BASOPHILS % (AUTO) 0.4 %; EOSINOPHILS # (AUTO) 0.1 10^3/uL (0.0-0.7); EOSINOPHILS % (AUTO) 0.4 %; HGB - HEMOGLOBIN 7.4 g/dL (12.0-16.0); LYMPHOCYTES # (AUTO) 0.9 10^3/uL (1.5-3.5); MEAN CORPUSCULAR HEMOGLOBIN 30.3 pg (27.0-31.0); MEAN CORPUSCULAR HGB CONC 32.2 g/dL (32.0-36.0); MEAN CORPUSCULAR VOLUME 94.3 fL (81.0-99.0); MEAN PLATELET VOLUME 8.2 fL (7.9-10.8); MONOCYTES # (AUTO) 1.4 10^3/uL (0.0-1.0); MONOCYTES % (AUTO) 11.2 %; NEUTROPHILS # (AUTO) 10.3 10^3/uL (1.5-6.6); NEUTROPHILS % (AUTO) 80.2 %; PLT - PLATELET COUNT 297 10^3/uL (130-450); RED BLOOD COUNT 2.44 10^6/uL (4.20-5.40); RED CELL DISTRIBUTION WIDTH 12.6 % (12.0-15.0); WHITE BLOOD COUNT 12.8 x10^3/uL (4.8-10.8)
[2024-06-20 06:10] LABS: CALCIUM 8.1 mg/dL (8.5-10.3); CREATININE 0.7 mg/dL (0.6-1.3); MAGNESIUM 1.7 mg/dL (1.7-2.3); POTASSIUM 3.8 mmol/L (3.5-4.5)
[2024-06-20] MEDS: ANASTROZOLE 1 MG TABLET PO SCH (10:18)
--- NOTE | 2024-06-20 11:30 | Ultrasound Report ---
PROCEDURE: US Chest INDICATIONS: thoracentsis TECHNIQUE: Real-time scanning was performed, and a suitable site was marked by the plywood layup line back feeder for thoracentesis to be performed by the referring clinician. COMPARISON: None. FINDINGS AND IMPRESSION: Complex appearing moderate degree of fluid is seen in the right pleura. This is amenable to ultrasoun d-guided aspiration in radiology, although drainage may be incomplete due to the complexity of the fl uid. Drain placement can also be considered. Please call radiology to discuss if clinically needed. Reviewed by: Kuldeep Hanson MD on 06/20/2024 11:29 AM PST Approved by: Kuldeep Hanson MD on 06/20/2024 11:29 AM PST Station ID: [id number]
--- NOTE | 2024-06-20 15:42 | PROVIDER PROGRESS NOTE ---
Progress Note Progress Note Progress Note: June 20, 2024 3:30 PM The patient underwent a ultrasound of chest this morning as requested by radiologist to better assess the volume of the fluid in her right lung. Our team had ordered a CT yesterday and by the time it was read and available in the afternoon, it was too late to do thoracentesis. I had a long conversation with radiology and today's results show that it is a complex pleural effusion. Not described as loculated. The patient has responded with regards to antibiotics and that her white cell count has gone to 12,000 from the 20,000 she was admitted with. But there is still a conversation to be had with regards to the fact that she has a history of breast cancer and there is nonspecific nodule seen on CT of that lung. So if this infection or is this metastatic breast cancer? She herself says that she is just tired. Short of breath. Has occasional sharp stabbing pleuritic right-sided chest pain underneath her right breast. She has no appetite. In the last few weeks she is eating very little and she is lost weight. She appears depressed, despondent with tears in her eyes. Exam Blood pressure 136/63, pulse 80, respirations 18, temperature 36.6, O2 sat 94%. She is 5 foot 2 inches tall, 50.5 kg. She has bilateral temporal wasting, loss of muscle mass in arms and legs and is not cachectic but appears quite thin. Appears anhedonic versus being emotionally withdrawn Neck is without JVD and is supple Right lung base has egophony and diminished breath sounds, left lung is clear. There is no increased respiratory effort, no use of accessory muscles. She is lying at about 30 degrees in bed and is able to sit up. Right breast has a mass. I do feel right axillary adenopathy. Regular rate and rhythm Abdomen is soft, nontender, no fluid wave. She states that she sometimes gets an occasional left mid abdominal ache that comes and goes. But I do not feel any mass. Extremities without edema, or thin with diminished muscle mass. Alert and oriented to person, place, time and situation. Tells me that her PCP is Dr. Díaz in [place] and cannot remember the name of her oncologist at [facility]. I have reviewed her labs for this day: Chemistry today still show hyponatremia with a sodium of 130. It has been trended on a daily basis and it is about the same as it has been. She was 128 then 129 and then 130 today. But prior to the 128 she was 130. Potassium is normal. Chloride is low. BUN 10, creatinine 0.7. Fasting glucose is 179, glucose before lunch is 277. Calcium is 8.1, magnesium 1.7. White cell count is 12.8 today. She has been slowly coming down since she was admitted where she was 20.4. She has a chronic normocytic anemia. Today she is 7.4. She is drifted down from the 8.6 of admission. In May 2023 hemoglobin was 12.6. Her white cell consul has a left shift with neutrophil elevated neutrophils and monocytes. Blood cultures from June 17 are normal. Assessment/plan 1. Pneumonia in the context of the patient who has a history of breast cancer. The patient tells me that "I had no cancer a year ago" and the doctor said that I was "clear". She is on anastrozole but not on any chemo or radiation. I do not consider her completely immunocompromised. Blood cultures are negative. And she is now day 3 of antibiotics. I will continue IV antibiotics until white cell count is normal and switch to oral. I will aim for a total of 7 days of abx. 2. Right pleural effusion causing some shortness of breath. And pleuritic chest pain. Differential diagnosis would be malignancy versus infection. CT of the chest shows nonloculated effusion that is moderate in size. Ultrasound of the chest done this morning shows a complex pleural effusion. I discussed the case with radiology and he will do a thoracentesis to at least help me decide if this is malignancy or infection. I will order cell count, LDH, protein, glucose, aerobic and anaerobic cultures. As well as cytology. I also discussed the case with her primary care provider. She could not remember the name of her oncologist. But she was able to tell me that Dr. Arjun HARTMAN in [place] was her physician. I called Dr. Díaz and he let me know that was the MD with [facility] that was taking care of her. She was last seen by him in December 2022. She was started on anastrozole therapy and he was following up on that therapy that was started in March 2022. At that point in time he felt that her breast mass had improved but was still grossly abnormally large with skin involvement and numerous surrounding nodular dermal mets. But no longer draining. The last time she saw Dr. Díaz was September 2023 and he felt that her breast had improved even from the December 2022 exam. She had already had an admission in November 2022 to [facility] for pneumonia consistent with consolidation and a very small right pleural effusion. I have updated him on her condition. Let him know that there is a logistical problem with regards to her accessing health care as well as insurance issues. She is asking us to find care locally so I am referring her to Dr. Strauss when she gets out of the hospital. I would think that primary care provider would still be Dr. Díaz since she has a good regard of him and wants to continue to see him. 3. Invasive right breast carcinoma, stage IV As above in problem #2 December levels of CA 15-3 were 10.6. CA 2729 was 18. CEA was 2.9. I will discuss care goals with her tomorrow. Hopefully family members will be at the bedside to help guide me and her about what she wants. 4. Hyponatremia Her usual sodium is normal.She did have a sodium of 128 December 31, 2022. With this admission she was 126 and she has been slowly normalizing and is 130 today. Likely hypovolemic hyponatremia in the setting of decreased p.o. intake, pleural effusion. Treatment has been IV fluids. I will continue gentle IV hydration with NS but monitor her for signs and symptoms of fluid overload. 5. Type 2 diabetes mellitus with long-term use of insulin, without complications Treatment is sliding scale insulin. Yesterday she received 2 units for 230 before lunch, 3 units for 236 before dinner, 3 units at bedtime for 228. This morning she has received 1 unit for breakfast level of 179. She is also on 7 units of Semglee at night. She has no appetite. She says that she brings the food to her mouth and just feels like she just does not want to eat or swallow. I will increase Lantus to 9 units tonight. 6. Acute protein calorie malnutrition seen on exam. She has temporal wasting, reduced body mass. When I reviewed her notes from [facility] December 2022, they do have a vital sign, but there is no weight. The patient thinks she is lost a substantial amount of weight but I am unable to verify. Her last nutrition services to work with her to see if there is any food that we can coax her to eat. I will also order nutritional supplements with each meal. Resolved problems: 7. Sepsis
[2024-06-20] MEDS ORDERED: LIDOCAINE-MPF 1% 5 ML VIAL ONE (15:59)
--- NOTE | 2024-06-20 16:42 | Ultrasound Report ---
PROCEDURE: US Thoracentesis Puncture INDICATIONS: pleural effusuion TECHNIQUE: The indications, alternatives, benefits, risks, and complications of the procedure were explained to the patient. Written informed consent was obtained and placed in the chart. The chest was examined sonographically, and an appropriate site was chosen for thoracentesis. The skin was prepared and warren ped in the usual sterile fashion, and 1% lidocaine was infiltrated from the skin down through the ple ural surface. A 19-gauge catheter-covered needle was then introduced into the pleural space, the cat heter was advanced and the needle was withdrawn, and thereafter pleural fluid was aspirated. The cat heter was then removed and a dressing was applied. COMPARISON: Same-day ultrasound FINDINGS: Access site: Right hemithorax. Needle: One-Step centesis catheter with introducer needle. Fluid volume and description: 400 cc, purulent Fluid sent for diagnostic testing: Yes Medications: 1% lidocaine for local anaesthesia. Complications: None; post-procedural chest radiograph is pending to assess for pneumothorax. IMPRESSION: Successful ultrasound-guided thoracentesis. Purulent fluid was aspirated. Consider chest CT depending on clinical status to assess the amount of remaining fluid. Reviewed by: Kuldeep Hanson MD on 06/20/2024 4:40 PM PST Approved by: Kuldeep Hanson MD on 06/20/2024 4:40 PM PST Station ID: [id number]
--- NOTE | 2024-06-20 16:54 | XRAY Report ---
PROCEDURE: XR Post Thoracentesis 1V CXR INDICATIONS: POST THORA TECHNIQUE: One view of the chest was acquired. COMPARISON: Same-day ultrasound and 06/19/2024 CT FINDINGS: Surgical changes and devices: None. Lungs and pleura: Mild to moderate right pleural fluid is slightly decreased. No significant pneumot horax component. Underlying lung consolidation and opacity are present. Mediastinum: Normal heart size, unchanged Bones and chest wall: Degenerative changes IMPRESSION: No pneumothorax following right thoracentesis. Fluid is slightly decreased on radiography, but not resolved. Underlying opacity persists. Reviewed by: Kuldeep Hanson MD on 06/20/2024 4:52 PM PST Approved by: Kuldeep Hanson MD on 06/20/2024 4:52 PM PST Station ID: [id number]
[2024-06-20 18:02] LABS: BF CLARITY TURBID; BF SOURCE PLEURAL; CC,BF RBC 470000 /mm^3; CC,BF WBC 1334400 /mm^3
[2024-06-20 18:05] LABS: BF COLOR STRAW
[2024-06-20 20:21] LABS: LYMPHOCYTES %,BODY FLUID 31 %; MACROPHAGES %,BODY FLUID 13 %; NEUTROPHILS %, BF 56 %
[2024-06-21] MEDS: ACETAMINOPHEN 325 MG TABLET PO PRN (00:37)
[2024-06-21 05:48] LABS: BASOPHILS % (AUTO) 0.3 %; EOSINOPHILS # (AUTO) 0.1 10^3/uL (0.0-0.7); EOSINOPHILS % (AUTO) 0.8 %; HCT - HEMATOCRIT 21.3 % (37.0-47.0); LYMPHOCYTES # (AUTO) 0.9 10^3/uL (1.5-3.5); LYMPHOCYTES % (AUTO) 8.1 %; MEAN CORPUSCULAR HEMOGLOBIN 30.9 pg (27.0-31.0); MEAN CORPUSCULAR HGB CONC 31.9 g/dL (32.0-36.0); MEAN CORPUSCULAR VOLUME 96.8 fL (81.0-99.0); MEAN PLATELET VOLUME 8.1 fL (7.9-10.8); MONOCYTES # (AUTO) 1.1 10^3/uL (0.0-1.0); MONOCYTES % (AUTO) 9.4 %; NEUTROPHILS # (AUTO) 9.4 10^3/uL (1.5-6.6); NEUTROPHILS % (AUTO) 80.8 %; PLT - PLATELET COUNT 299 10^3/uL (130-450); RED CELL DISTRIBUTION WIDTH 12.6 % (12.0-15.0); WHITE BLOOD COUNT 11.6 x10^3/uL (4.8-10.8)
[2024-06-21 05:57] LABS: HGB - HEMOGLOBIN 6.8 g/dL (12.0-16.0)
[2024-06-21 06:03] LABS: CALCIUM 7.8 mg/dL (8.5-10.3); CREATININE 0.9 mg/dL (0.6-1.3); POTASSIUM 3.5 mmol/L (3.5-4.5)
[2024-06-21] MEDS ORDERED: iohexoL-300 100 ML VIAL ONE (06:59)
--- NOTE | 2024-06-21 11:51 | CT Report ---
PROCEDURE: CT Chest W INDICATIONS: post thoracentesis eval of fluid CONTRAST: OMNI 300 100ML TECHNIQUE: After the administration of intravenous contrast, a CT scan of the chest was performed. Images were recorded and evaluated at appropriate window settings. Reformats: axial MIP of the chest, coronal and sagittal. For radiation dose reduction, the following was used: automated exposure control, adjustme nt of mA and/or kV according to patient size. COMPARISON: 06/19/2024 FINDINGS: Image quality: Diagnostic Lungs and pleura:Trace left pleural effusion is new. Bibasilar pulmonary consolidations are again seen, with superimposed atelectasis. This is greater on the right. Minimally decreased right complex effusion, measuring 10.8 x 5.5 cm on coronal image 4/127 previously 12.2 x 6.6 cm There is adjacent pleural thickening. Internal gas likely representing procedural changes Mediastinum, heart, and esophagus: Coronary calcifications. Borderline enlarged mediastinal hilar lym ph nodes again seen. Unremarkable esophagus otherwise Chest wall and thyroid: Possible right breast mass and right axillary suspicious soft tissue again se en. There is also skin thickening adjacent to the right lower outer breast. Upper abdomen: No gross abnormality on these images partially visualized. Bones: No suspicious osseous lesion. There are degenerative changes. IMPRESSION: Complex right pleural effusion with pleural thickening is minimally decreased compared to prior imagi ng, following yesterday's thoracentesis. Given purulent aspirate, findings suspicious for empyema. Tr ial with an image guided drainage catheter could be ordered versus thoracic surgical consultation. Again seen are indeterminant borderline enlarged thoracic lymph nodes, right lower breast probable ma ss, and suspicious right axillary soft tissue. Reviewed by: Kuldeep Hanson MD on 06/21/2024 11:50 AM PST Approved by: Kuldeep Hanson MD on 06/21/2024 11:50 AM PST Station ID: [id number]
[2024-06-21 16:08] LABS: PROTEIN BODY FLUID 2.2 g/dL (.)
--- NOTE | 2024-06-21 17:05 | PROVIDER PROGRESS NOTE ---
Progress Note Progress Note Progress Note: June 21, 2024 5 PM She was sitting up in bed this morning. Sat up in bed at lunch. She is weak. It is a effort to sit up. Right pleuritic chest pain. Had a fever last night. This was at midnight. Given Tylenol and since then has had reducing temperature. She denies cough, has chronic shortness of breath. At care conference we discussed her depression, anorexia. She is not eating well. Exam: Blood pressure 151/66, pulse 80, respirations 18, temperature 36.4, 98% saturated. Cachectic frail-appearing female. Muted affect. I need to help her back in bed from the sitting position because she is exhausted is sitting up at the bedside to eat breakfast and lunch. Dull right lung base. Rhonchi right midlung. Left lung relatively clear. No tachypnea.The right breast mass and associated axillary adenopathy is not changed. Regular rate and rhythm. Abdomen soft, nontender, hypoactive bowel sounds without masses. Severely wasted muscle mass. No edema. Oriented to person, place, and day. In spite of the language barrier, she is able to understand me and when she responds in Burkinan I understand her. No focal deficits. I reviewed her labs and chemistries are normal. GFR 62 with a normal BUN and creatinine. Glucose 127. Before lunch she was 217, before dinner she is 278. Glycosylated hemoglobin is 9.4% Cell count shows that her white cell count continues to come down. She was 20.4 on June 17, and is 11.6 today. She usually has a normal hemoglobin of 12.6 and was 8.6 on admission. And has come down to 6.8 today. Platelets 299. I sent off the thoracentesis fluid for culture. The Gram stain so far shows no white cells, no organisms. Preliminary culture is in process. The fluid is straw-colored, turbid, and she has 1,334,400 white cells. 470,000 red cells. 56% neutrophils, 31% lymphocytes, 13% macrophages. Glucose is 337. Total protein 2.2. I did order cytology and that is pending. Assessment/plan 1. Pneumonia in the context of the patient who has a history of breast cancer. The patient tells me that "I had no cancer a year ago" and the doctor said that I was "clear". She is on anastrozole but not on any chemo or radiation. I do not consider her completely immunocompromised. Blood cultures are negative. And she is now day 4 of antibiotics. I will continue IV antibiotics until white cell count is normal and switch to oral. I will aim for a total of 7 days of abx. 2. Right pleural effusion causing some shortness of breath. And pleuritic chest pain. Differential diagnosis would be malignancy versus infection. CT of the chest shows nonloculated effusion that is moderate in size. Ultrasound of the chest done shows a complex pleural effusion. I discussed the case with radiology and He performed a thoracentesis on June 20. Analysis is as above. I will be awaiting cytology results. Valentin Ryan from radiology recommended a chest tube be placed. I discussed this with general surgery Dr. Merrill, who feels that that would be the second choice. First choice is to put in an IR image guided pleural catheter. It is typically a small pigtail catheter and it would be much less painful on insertion and less painful to maintain for the patient. General surgery wants to reserve a thoracostomy chest tube placement until the pigtail catheter cannot be placed. I also discussed the case with her primary care provider 06/20/24. She could not remember the name of her oncologist. But she was able to tell me that Dr. Arjun HARTMAN in [place] was her physician. I called Dr. Díaz and he let me know that was the MD with [facility] that was taking care of her. She was last seen by him in December 2022. She was started on anastrozol e therapy and he was following up on that therapy that was started in March 2022. At that point in time he felt that her breast mass had improved but was still grossly abnormally large with skin involvement and numerous surrounding nodular dermal mets. But no longer draining. The last time she saw Dr. Díaz was September 2023 and he felt that her breast had improved even from the December 2022 exam. She had already had an admission in November 2022 to [facility] for pneumonia consistent with consolidation and a very small right pleural effusion. I have updated Dr. Díaz on her condition. Let him know that there is a logistical problem with regards to her accessing health care as well as insurance issues. She is asking us to find care locally so I am referring her to Dr. Strauss when she gets out of the hospital. I would think that primary care provider would still be Dr. Díaz since she has a good regard of him and wants to continue to see him. 3. Invasive right breast carcinoma, stage IV As above in problem #2 December levels of CA 15-3 were 10.6. CA 2729 was 18. CEA was 2.9. Today she is overwhelmed. Tearful. Just the idea of me trying to figure out what to do with her pleural effusion causes and emotional withdrawal. So I am not able to discuss goals of care with her today. For the last few days family has not been at the bedside. 4. Hyponatremia resolved today Her usual sodium is normal. She did have a sodium of 128 December 31, 2022. With this admission she was 126 and she has been slowly normalizing and is 135 today. Likely hypovolemic hyponatremia in the setting of decreased p.o. intake, pleural effusion. Treatment has been IV fluids. I will continue gentle IV hydration with NS but monitor her for signs and symptoms of fluid overload. 5. Type 2 diabetes mellitus with long-term use of insulin, without complications Treatment is sliding scale insulin. 06/19/24 she received 2 units for 230 before lunch, 3 units for 236 before dinner, 3 units at bedtime for 228. 06/20/24 she has received 1 unit for breakfast level of 179. She is also on 7 units of Semglee at night. Poor po intake.I increased her lantus to 9 units last night. This morning her glucose was 127 and no insulin given. She has no appetite. She says that she brings the food to her mouth and just feels like she just does not want to eat or swallow. As long as she stays above 125 fasting and below 135, I will keep lantus at same dose. 6. Acute protein calorie malnutrition seen on exam. She has temporal wasting, reduced body mass. When I reviewed her notes from [facility] December 2022, they do have a vital sign, but there is no weight. The patient thinks she is lost a substantial amount of weight but I am unable to verify. Her last nutrition services to work with her to see if there is any food that we can coax her to eat. I will also order nutritional supplements with each meal. Today we discussed your care conference, and I will be ordering Remeron for nighttime dosing Resolved problems: 7. Sepsis Current Medications Current Medications Current Medications: Current Medications Generic Name Dose Route Start Last Admin Trade Name Freq PRN Reason Stop Dose Admin Acetaminophen 650 mg 06/18/24 01:32 06/21/24 00:37 Acetaminophen 325 Mg Tablet PO 650 mg Q4HR PRN Administration Pain 1 to 4, or Fever Anastrozole 1 mg 06/20/24 09:00 06/21/24 09:24 Anastrozole 1 Mg Tablet PO 1 mg DAILY MAIKEL Administration Enoxaparin Sodium 40 mg 06/18/24 09:00 06/21/24 09:24 Enoxaparin 40 Mg/0.4 Ml Syringe SUBQ 40 mg DAILY MAIKEL Administration Sodium Chloride 1,000 mls @ 83.333 mls/hr 06/19/24 13:00 06/21/24 13:02 Normal Saline 0.9% IV 83 mls/hr .Q12H MAIKEL Infusion Ampicillin Sodium/Sulbactam 100 mls @ 200 mls/hr 06/19/24 18:00 06/21/24 13:23 Sodium 3 gm/ Sodium Chloride IV Infused Q6HR MAIKEL Infusion Insulin Glargine-yfgn 7 unit 06/19/24 21:00 06/20/24 21:40 Insulin Glargine-Yfgn 300 Unit/3 Ml Pen SUBQ 7 unit QPM MAIKEL Administration Insulin Human Lispro 1 - 5 unit 06/18/24 08:00 06/21/24 12:52 Insulin Lispro 300 Unit/3 Ml Pen SUBQ 2 unit 0800,1200,1700,2100 MAIKEL Administration Protocol Multivitamins/Minerals 1 tab 06/19/24 17:00 06/21/24 09:24 Multivitamin W/Minerals Tablet PO 1 tab DAILYWM MAIKEL Administration Ondansetron HCl 4 mg 06/18/24 00:47 Ondansetron Odt 4 Mg Tablet TL Q6H PRN Nausea / Vomiting Ondansetron HCl 4 mg 06/18/24 01:32 Ondansetron 4 Mg/2 Ml Vial IVP Q6HR PRN Nausea / Vomiting Polyethylene Glycol 17 gm 06/19/24 09:00 06/21/24 09:25 Polyethylene Glycol 3350 17 Gm Packet PO 17 gm DAILY MAIKEL Administration Sodium Chloride 10 ml 06/18/24 01:32 06/20/24 11:30 Sodium Chloride Flush 0.9% 10 Ml Syringe IVP 10 ml PRN PRN Administration NEEDED PER PROVIDER ORDERS Sodium Chloride 10 ml 06/18/24 01:32 06/21/24 09:25 Sodium Chloride Flush 0.9% 10 Ml Syringe IVP 10 ml 0100,0900,1700 MAIKEL Administration
[2024-06-21] MEDS: MIRTAZAPINE 15 MG TABLET PO SCH (21:21)
[2024-06-21] MEDS: INSULIN LISPRO 300 UNIT/3 ML PEN SUBQ SCH (21:22)
[2024-06-22 06:13] LABS: BASOPHILS # (AUTO) 0.1 10^3/uL (0.0-0.1); BASOPHILS % (AUTO) 0.5 %; EOSINOPHILS # (AUTO) 0.2 10^3/uL (0.0-0.7); EOSINOPHILS % (AUTO) 1.9 %; HCT - HEMATOCRIT 26.5 % (37.0-47.0); HGB - HEMOGLOBIN 8.7 g/dL (12.0-16.0); LYMPHOCYTES # (AUTO) 0.9 10^3/uL (1.5-3.5); LYMPHOCYTES % (AUTO) 9.8 %; MEAN CORPUSCULAR HEMOGLOBIN 30.9 pg (27.0-31.0); MEAN CORPUSCULAR HGB CONC 32.8 g/dL (32.0-36.0); MEAN PLATELET VOLUME 8.2 fL (7.9-10.8); MONOCYTES # (AUTO) 1.1 10^3/uL (0.0-1.0); MONOCYTES % (AUTO) 11.3 %; NEUTROPHILS # (AUTO) 7.2 10^3/uL (1.5-6.6); NEUTROPHILS % (AUTO) 75.7 %; PLT - PLATELET COUNT 354 10^3/uL (130-450); RED BLOOD COUNT 2.82 10^6/uL (4.20-5.40); RED CELL DISTRIBUTION WIDTH 13.5 % (12.0-15.0); WHITE BLOOD COUNT 9.5 x10^3/uL (4.8-10.8)
[2024-06-22 06:28] LABS: CALCIUM 7.8 mg/dL (8.5-10.3); CREATININE 0.7 mg/dL (0.6-1.3)
--- NOTE | 2024-06-22 13:05 | PROVIDER PROGRESS NOTE ---
Progress Note Progress Note Progress Note: June 22, 2024 12:45 PM Patient is tired. Same pleuritic chest pain. Same shortness of breath at rest and exertion. No appetite. She only ate 1 meal on the fourth. 1 meal on the fifth. And this morning she is eaten 50% of breakfast. Urine output is stable. She is drinking fluids. Up to a liter a day. She is able to get up and ambulate to the bathroom with a standby assist. But if she has to sit up for any length of time she has to lay back down within 10 minutes. No fever spike last night. She has remained stable since the certification and selection specialist hours of June 21 where she had a temperature 39. Exam: Blood pressure 143/60, pulse 77, respiration 16, temp 36.6, 97% on room air. 5 foot 2 inch tall female who is 50.5 kg. She is from the [facility] and she speaks [place]. But she does speak and understand Icelandic. Neck supple with shotty adenopathy. No JVD. Egophony at the right lung base. Both breath sounds at right lower and right middle lobes. Left lung sounds clear. No use of accessory muscles. Right essence ast mass in the axillary adenopathy is stable. Abdomen is soft, nontender, hypoactive bowel sounds, no masses, no effusions. Extremities with severe loss of muscle mass for malnutrition. No edema. Neurologically she is alert and oriented to person, place, time and situation. She understands that I need to find a way to drain her right lung. I have drawn her diagrams to explain the space between her lung and her rib cage that is filled with fluid that is purulent. I have also explained to her that I do not know if this is cancer or pneumonia. She is able to get up and walk to the bathroom slowly. Exhausted and short of breath by the time she is back in bed. I reviewed her labs. Chemistry show a hypokalemia to 3.0. The rest of the BMP is normal. She is on Semglee 7 units at night. Yesterday she was 127 fasting in the morning after the Semglee the night before. This morning she is 84. Before lunch she is 122. I discussed the case with our coring machine operator. I have decided to need to move her Semglee from nighttime dosing to morning dosing to avoid hypoglycemia. Hematology shows a normal white blood count. She has been gradually coming down. On admission she was 20.4, and today she is 9.5. She has been anemic since admission. Her usual hemoglobin is 12.6. She was admitted at 8.6. Drifted down to 6.8 yesterday and I gave her a unit of blood. This morning she is 8.7. I am assuming her blood loss is from the blood I am seeing in her chest fluid. Platelets are 354. The pleural fluid culture from June 20 is still pending. Gram stain did not have white cells or organisms. Her pleural fluid protein was 2.2. Less than the 2.5 of lights criteria indicating this is transudative. Serum total protein is 8.1. Her serum to pleural fluid ratio is 3.68. Which would make it exudative. It was thick, gelatinous. I would label it is exudative. Assessment/plan 1. Pneumonia in the context of the patient who has a history of breast cancer. The patient tells me that "I had no cancer a year ago" and the doctor said that I was "clear". I think she has poor insight and what clear means. Because she had been responding to the anastrozole she felt that her cancer was going away. I do not think she understands what stage IV breast cancer means. She is on anastrozole but not on any chemo or radiation. I do not consider her completely immunocompromised. Blood cultures are negative. And she is now day 5 of antibiotics. Her white cell count has been slowly coming down. She is not hypoxic. Today she is normal for the first time. Blood cultures are negative. Pleural cultures are pending. Now that white cell count is normal I will change her to Levaquin to complete 7 days total of abx. 2. Right pleural effusion causing some shortness of breath. And pleuritic chest pain. Differential diagnosis would be malignancy versus infection. CT of the chest shows nonloculated effusion that is moderate in size. Ultrasound of the chest done shows a complex pleural effusion. I discussed the case with radiology and He performed a thoracentesis on June 20. Analysis is as above. I will be awaiting cytology results. Dr. Hanson from radiology recommended a chest tube be placed. I discussed this with general surgery Dr. Merrill, who feels that that would be the second choice. First choice is to put in an IR image guided pleural catheter. It is typically a small pigtail catheter and it would be much less painful on insertion and less painful to maintain for the patient. General surgery wants to reserve a thoracostomy chest tube placement until the pigtail catheter cannot be placed. I also discussed the case with her primary care provider 06/20/24. She could not remember the name of her oncologist. But she was able to tell me that Dr. Arjun HARTMAN in [place] was her physician. I called Dr. Díaz and he let me know that was the MD with [facility] that was taking care of her. She was last seen by him in December 2022. She was started on anastrozole therapy and he was following up on that therapy that was started in March 2022. At that point in time he felt that her breast mass had improved but was still grossly abnormally large with skin involvement and numerous surrounding nodular dermal mets. But no longer draining. The last time she saw Dr. Díaz was September 2023 and he felt that her breast had improved even from the December 2022 exam. She had already had an admission in November 2022 to [facility] for pneumonia consistent with consolidation and a very small right pleural effusion. I updated Dr. Díaz on her condition with the 06/20/24 conversation.. Let him know that there is a logistical problem with regards to her accessing health care as well as insurance issues. She is asking us to find care locally so I am referring her to Dr. Strauss her at our [facility] when she gets out of the hospital. I would think that primary care provider would still be Dr. Díaz since she has a good regard of him and wants to continue to see him. I have discussed the case with Dr. Hanson (radiology) and current radiologist today about the Pleurex catheter. We do not place them in this facility at all. We also do not do VATS in this facility. I then reached out to [facility] 06/20 because that is where her oncologist is. I put her on a bed list to transfer her after the discussion with Dr. Hanson. I called that transfer center again today to see where she was in the list, and they explained to me that they also do not do Pleurex catheters or VATS. I then reached out to [facility] transfer center today. They are taking her information and will let me know. I have also spoken to transfer center and I have sent her facesheet and pushed her CT scans to them. 3. Invasive right breast carcinoma, stage IV As above in problem #2 December levels of CA 15-3 were 10.6. CA 2729 was 18. CEA was 2.9. She wants to procede with treatment for #2 then will see what she wants to do 4. acute blood loss anemia. I am presuming this is from the blood that is in her chest. Quite a bit was seen when we did the thoracentesis. It has responded to 1 unit of blood. She is still anemic but above the cutoff of 7 g of hemoglobin to transfuse. I will continue to monitor her daily and give transfusions when she drops below 7 g. 5. Type 2 diabetes mellitus with long-term use of insulin, without complications Treatment is sliding scale insulin. Plus Semglee. She had been on 7 units at night. I had increased her to 9 units at night. That is leaving her a little hypoglycemic today after 2 nights of injection. So we will change the dosing of the insulin to morning time today. 6. Acute protein calorie malnutrition seen on exam. She has temporal wasting, reduced body mass. When I reviewed her notes from [facility] December 2022, they do have a vital sign, but there is no weight. The patient thinks she is lost a substantial amount of weight but I am unable to verify. Her last nutrition services to work with her to see if there is any food that we can coax her to eat. I will also order nutritional supplements with each meal. Today we discussed your care conference, and I will be ordering Remeron for nighttime dosing Resolved problems: 7. Hyponatremia resolved 06/21/24 Her usual sodium is normal. She did have a sodium of 128 December 31, 2022. With this admission she was 126 and she has been slowly normalizing and is 135 today. Likely hypovolemic hyponatremia in the setting of decreased p.o. intake, pleural effusion. Treatment has been IV fluids. 8. Sepsis
[2024-06-22 15:40] VITALS: TEMP 98.1
[2024-06-22] MEDS: POTASSIUM CHLORIDE 20 MEQ/15 ML UDC PO SCH (17:06)
[2024-06-22 18:44] VITALS: BP 159/77; O2SAT 96
--- NOTE | 2024-06-22 19:11 | Discharge Summary ---
Discharge Summary Admit Date: 06/18/24 Discharge Date: 06/22/24 Discharging Provider: Imani Robbins MD Primary Care Provider: John Díaz DO Code Status: Attempt Resuscitation Discharge [facility] DIAGNOSES Discharge Diagnoses with Status of Each Condition: 1. Sepsis 2. Pneumonia 3. Exudative pleural effusion 4. Invasive right breast carcinoma stage IV 5. Acute blood loss anemia 6. Type 2 diabetes mellitus with out long-term use of insulin, without complication 7. Acute protein calorie malnutrition 8. Hyponatremia 9. Hypokalemia HPI History of Present Illness: 68 yo F with h/o Breast CA, DM type 2 presented to the ER with c/o 1 month h/o weakness, Shortness of breath, cough. Pt was admitted to a different hospital 1 year ago for similar symptoms with diagnosis of PNA. Pt was seen 1 month ago at different hospital and given dx of Flu. Pt's symptoms continued to worsen, so she came to the ER today. Pt has a h/o Breast CA, but no h/o surgery for CA, no radiation. Pt does take medication (unknown name for CA). Pt was seeing a Dr. Robin, an Oncologist in [facility], for her Breast CA, but has been unable to see him in >1 year d/t insurance issues. Pt says that her R breast has an improved appearance than pre-tx. She is willing to see a more local Oncologist. Pt takes PO medications for her DM 2 (unknown names). Her FBS are usually 180 or less. Pt began to have symptoms of SOB 1 month ago, then cough with no sputum, and weakness. No documented Fever. +cold/shivering x 1 day. +nausea/decreased appetite. No abdo pain. In the ER she had sepsis criteria met with , T39.9C, HR 100, RR 20, WBC 20.4, Hgb 8.6, Na 126, Glc 240 CXR: Right-sided pleural effusion, with consolidation seen involving the anterior right lung. Pt was given IVF, Rocephin/Azithro in the ER. CONSULTS | PROCEDURES Procedures: 1. Chest x-ray on June 17 has a right-sided pleural effusion which consolidation of the anterior right lung. 2. Chest CT done in June 19 has bibasilar atelectasis, opacities. Rounded opacity in the right lower lung measuring 3.2 cm. Moderate right-sided pleural effusion with thickened enhancing pleura. There is cardiomegaly. Borderline enlarged lymph nodes in the upper mediastinum, pretracheal node measuring 0.8. Right breast mass at 1.5 cm as well as adjacent skin thickening. Right axillary soft tissue 2.6 cm. It looks like an empyema. 3. June 20 ultrasound of chest wall done to assess size of pleural fluid requested by radiology to see if a thoracentesis was appropriate. It was a complex appearing moderate degree of fluid in the right pleura. This is amenable to ultrasound-guided aspiration. 4. Ultrasound-guided thoracentesis done June 20. 400 cc of purulent fluid was removed. It was greenish-yellow, intermixed with fresh blood, and also with clear exudate at times. 5. Postthoracentesis chest x-ray did not reveal pneumothorax. Fluid slightly decreased. 6. Postthoracentesis CT requested by radiology. Trace left pleural effusion is new. Bibasilar pulmonary consolidations are again seen with superimposed atelectasis. Right greater than left. Minimally decreased right complex effusion measuring 10.8 x 5.5 cm. Previously was 12.2 x 6.6. Adjacent pleural thickening. Internal gas likely representing procedural changes. Borderline enlarged mediastinal hilar lymph nodes again seen. Probable right breast mass and right axillary suspicious soft tissue seen again. 7. Blood cultures done June 17 are negative. 8.pleural fluid June 20 culture without organisms and culture is still pending at the time of this dictation. 9. Cytology was submitted for the pleural fluid and that is also pending at the time of this dictation. HOSPITAL COURSE Hospital Course: 1. Pneumonia in the context of the patient who has a history of breast cancer. The patient tells me that "I had no cancer a year ago" and the doctor said that I was "clear". I think she has poor insight and what clear means. Because she had been responding to the anastrozole she felt that her cancer was going away. I do not think she understands what stage IV breast cancer means. She is on anastrozole but not on any chemo or radiation. I do not consider her completely immunocompromised. Blood cultures are negative. Today she is now day 5 of antibiotics (zosyn). Her white cell count has been slowly coming down and today she is normal for the first time. She is not hypoxic. Blood cultures are negative. Pleural cultures are pending. Once white cell count became normal, I changed her to Augmentin to complete 7 days total of abx today. 2. Right pleural effusion causing some shortness of breath. And pleuritic chest pain. Differential diagnosis would be malignancy versus infection. CT of the chest shows nonloculated effusion that is moderate in size. Ultrasound of the chest done shows a complex pleural effusion. I discussed the case with radiology and He performed a thoracentesis on June 20. The pleural fluid culture from June 20 is still pending. Gram stain did not have white cells or organisms. Her pleural fluid protein was 2.2. Less than the 2.5 of lights criteria indicating this is transudative. Serum total protein is 8.1. Her serum to pleural fluid ratio is 3.68. Which would make it exudative. It was thick, gelatinous. I would label it is exudative. I am still awaiting cytology results. Dr. Hanson from radiology recommended a chest tube be placed. I discussed this with general surgery Dr. Merrill, who feels that that would be the second choice. First choice is to put in an IR image guided pleural catheter. It is typically a small pigtail catheter and it would be much less painful on insertion and less painful to maintain for the patient. General surgery wants to reserve a thoracostomy chest tube placement until the pigtail catheter cannot be placed. I also discussed the case with her primary care provider 06/20/24. She could not remember the name of her oncologist. But she was able to tell me that Dr. Arjun HARTMAN in [place] was her physician. I called Dr. Díaz and he let me know that was the MD with [facility] that was taking care of her. She was last seen by him in December 2022. She was started on anastrozole therapy and he was following up on that therapy that was started in March 2022. At that point in time he felt that her breast mass had improved but was still grossly abnormally large with skin involvement and numerous surrounding nodular dermal mets. But no longer draining. The last time she saw Dr. Díaz was September 2023 and he felt that her breast had improved even from the December 2022 exam. She had already had an admission in November 2022 to [facility] for pneumonia consistent with consolidation and a very small right pleural effusion. I updated Dr. Díaz on her condition with the 06/20/24 conversation.. Let him know that there is a logistical problem with regards to her accessing health care as well as insurance issues. She is asking us to find care locally so I am referring her to Dr. Strauss her at our [facility] when she gets out of the hospital. I would think that primary care provider would still be Dr. Díaz since she has a good regard of him and wants to continue to see him. I have discussed the case with Dr. Hanson (radiology) and current radiologist today about the Pleurex catheter. We do not place them in this facility at all. We also do not do VATS in this facility. I then reached out to [facility] 06/20 because that is where her oncologist is. I put her on a bed list to transfer her after the discussion with Dr. Hanson. I called that transfer center again today to see where she was in the list, and they explained to me that they also do not do Pleurex catheters or VATS. I then reached out to [facility] transfer center today. They are taking her information and will let me know. I have also spoken to [facility] transfer center and I have sent her facesheet and pushed her CT scans to them. I spoke to thoracic surgery who said they would be willing to consult on the patient but that she needed to be admitted to medicine. I spoke to Dr. Kramer, hospitalist, and Dr. Kramer graciously accepted this patient in transfer. 3. Invasive right breast carcinoma, stage IV As above in problem #2 December levels of CA 15-3 were 10.6. CA 2729 was 18. CEA was 2.9. She wants to procede with treatment for #2 then will see what she wants to do 4. acute blood loss anemia. I am presuming this is from the blood that is in her chest. Quite a bit was seen when we did the thoracentesis. It has responded to 1 unit of blood. Her usual hemoglobin is 12.6. When she was admitted she was 8.6. She dropped to 6.8 yesterday and I gave her 1 unit of blood today she is 8.7. 5. Type 2 diabetes mellitus with long-term use of insulin, without complications Treatment is sliding scale insulin. Plus Semglee. She had been on 7 units at night. I had increased her to 9 units at night. That is leaving her a little hypoglycemic today after 2 nights of injection. So we will change the dosing of the insulin to morning time today.At home she usually takes glipizide. I did not use out on her while she was here.A1c on admission was 9.4%. 6. Acute protein calorie malnutrition seen on exam. She has temporal wasting, reduced body mass. When I reviewed her notes from [facility] December 2022, they do have a vital sign, but there is no weight. The patient thinks she is lost a substantial amount of weight but I am unable to verify.Nutrition services to see this patient. We added supplements to see if we could add calories. I also started her on Remeron. 7. Hyponatremia resolved 06/21/24 Her usual sodium is normal. She did have a sodium of 128 December 31, 2022. With this admission she was 126 and she has been slowly normalizing and is 135 today. Likely hypovolemic hyponatremia in the setting of decreased p.o. intake, pleural effusion. Treatment has been IV fluids. 8. Sepsis criteria resolved within 24 hours of admission She is transferred to [facility] in stable condition via BLS. She is a very muted fatigued appearing [place] female. Occasionally gets tears in her eyes when she describes how tired she feels. But she does not describe a lot of breast pain. More pleuritic pain with deep breathing. She has no appetite. Blood pressure is 159/77. Pulse 86. Respirations 24. Temperature 36.7. 96% saturated on room air. She has bilateral temporal wasting. Overall reduced lean body mass. Neck is supple. Egophony of the right lung base. Diminished breath sounds at the left lung base. But no use of accessory muscles and no respiratory distress. The abdomen is soft and nontender. Extremities are without edema. She is very weak and that truncal stability is poor. If she sits too long at breakfast or lunch she starts to sway in the bed and have to lay down. But she is able to get up out of bed with a standby assist and walk to the toilet. Get up on her own, wash her hands and get back in bed winded and fatigued. Greater than 30 minutes was spent coordinating discharge This document was made in part using voice recognition software. While efforts are made to proofread this document, sound alike and grammatical errors may occur. ALLERGIES Allergies Allergy/AdvReac Type Severity Reaction Status Date / Time ceftriaxone (From Rocephin) Allergy Mild Itching Verified 06/18/24 02:44 MEDICATIONS Ambulatory Orders Medication Instructions Recorded Confirmed anastrozole 1 mg tablet 1 mg PO DAILY 06/18/24 06/18/24 glipizide 2.5 mg tablet, extended 2.5 mg PO BID 06/18/24 06/18/24 release 24 hr LABS 06/22/24 05:16 06/22/24 05:16 Discharge Plan Discharge Patient Disposition: Transfer Acute Care Hosp Condition: Fair Medically Cleared Date:: 06/22/24 Prescriptions: Continued anastrozole 1 mg tablet 1 mg PO DAILY Patient Comments: TAKE 1 TABLET BY MOUTH IN THE MORNING glipizide 2.5 mg tablet extended release 24hr 2.5 mg PO BID Patient Comments: TAKE 1 TABLET BY MOUTH TWICE DAILY WITH SUPPER Print Language: Unknown
[2024-06-23] MEDS ORDERED: INSULIN GLARGINE-YFGN 300 UNIT/3 ML PEN SUBQ SCH (08:00)
== END 2024-06-22 19:54 | disposition short-term general hospital (02) | DRG 871 ==
LOC: ED 22:48 → MS2 06-18 01:00
PROVIDERS: ADMIT Internal Medicine; ATTEND Internal Medicine
DX: E86.1 Hypovolemia; Z20.818 Contact with and (suspected) exposure to other bacterial communicable diseases; R63.0 Anorexia; I49.3 Ventricular premature depolarization; E46 Unspecified protein-calorie malnutrition; Z68.20 Body mass index [BMI] 20.0-20.9, adult; Z79.4 Long term (current) use of insulin; N64.89 Other specified disorders of breast; Z20.822 Contact with and (suspected) exposure to COVID-19; J90 Pleural effusion, not elsewhere classified; R73.9 Hyperglycemia, unspecified; J18.9 Pneumonia, unspecified organism; D62 Acute posthemorrhagic anemia; R09.02 Hypoxemia; Z20.828 Contact with and (suspected) exposure to other viral communicable diseases; A41.9 Sepsis, unspecified organism; C50.911 Malignant neoplasm of unspecified site of right female breast; E87.6 Hypokalemia; D64.9 Anemia, unspecified; Z91.198 Patient's noncompliance with other medical treatment and regimen for other reason; F32.A Depression, unspecified; E11.649 Type 2 diabetes mellitus with hypoglycemia without coma; E87.1 Hypo-osmolality and hyponatremia